=== PATIENT | female | born 1945 | race Caucasian/White ===

== ENCOUNTER 2016-07-24 10:54 | Emergency (ER) | payer MEDICARE, MEDICAID ==
[~2016-07-24] VITALS: Ht 157.5 cm; Wt 63.5 kg
[~2016-07-24 10:54] MED LIST: ASP325EC PO; Atorvastatin Calcium PO; CLOP75TA28 PO; FLUT100I IN; FOLITAB45 PO; LISI40TA PO; PYRI100T51 PO
[2016-07-24 11:29] LABS: Basophils # (auto) 0.1 uL; Basophils % (auto) 0.5 % (0.0-2.0); Eosinophils # (auto) 0 uL; Hematocrit 47.4 % (36.0-46.0); Hemoglobin 15.9 g/dL (12.2-16.2); Lymphocytes # (auto) 3.8 uL; Lymphocytes % (auto) 22.5 % (10.0-50.0); Mean Corpuscular Hemoglobin 31.7 pg (28.0-32.0); Mean Corpuscular Hgb Conc. 33.6 g/dL (32.0-36.0); Mean Corpuscular Volume 94.4 fL (80.0-100.0); Mean Platelet Volume 8.8 fL (7.4-10.4); Monocytes # (auto) 0.8 uL; Monocytes % (auto) 4.9 % (0.0-12.0); Neutrophils # (auto) 12.2 uL; Neutrophils % (auto) 72.1 % (37.0-80.0); Platelet Count (auto) 343 10^3/uL (140-450); Red Cell Distribution Width 13.3 % (11.6-16.0); White Blood Cell 16.9 10^3/uL (4.4-10.8)
[2016-07-24 11:52] LABS: Albumin 3.6 g/dL (3.4-5.0); Alkaline Phosphatase 96 U/L (45-117); Anion Gap 9 (5-15); Aspartate Aminotransferase 19 U/L (15-37); BUN/Creatinine Ratio 24.3; Bilirubin, Total 0.7 mg/dL (0.2-1.0); Blood Urea Nitrogen 17 mg/dL (7-18); Carbon Dioxide 27 mmol/L (21-32); Chloride 108 mmol/L (98-107); GFR African American 107 mL/min; GFR Non-African American 88 mL/min; Glucose 106 mg/dL (74-106); Magnesium 2.4 mg/dL (1.6-2.6); Potassium 3.6 mmol/L (3.5-5.1); Sodium 144 mmol/L (136-145); Total Protein 7.5 g/dL (6.4-8.2)
[2016-07-24 11:54] LABS: B-Type Natriuretic Peptide 95.14 pg/mL (0-100)
[2016-07-24 16:59] VITALS: BP 134/40
[2016-07-24 17:05] LABS: Urine Bilirubin Negative (Negative); Urine Blood Negative /uL (Negative); Urine Color Yellow (Yellow); Urine Glucose Normal (Normal); Urine Ketone Negative (Negative); Urine Mucus FEW (None Seen); Urine Nitrite Negative (Negative); Urine RBC 1 /hpf (0 - 4); Urine Squamous Epithelial Cell FEW /hpf (<5); Urine Urobilinogen Normal (Negative)
== END 2016-07-24 18:00 | disposition short-term general hospital (02) ==
LOC: ER 10:54 → EDBD 10:54 → ER 18:00
DX: J44.1 Chronic obstructive pulmonary disease with (acute) exacerbation (principal); I10 Essential (primary) hypertension; D72.829 Elevated white blood cell count, unspecified; R09.02 Hypoxemia; R06.09 Other forms of dyspnea; R91.8 Other nonspecific abnormal finding of lung field; F17.210 Nicotine dependence, cigarettes, uncomplicated
CPT/HCPCS: 36415; 71020; 71250; 80053; 81001; 82962; 83605; 83735; 83880; 84484; 85025; 87040; 93005